=== PATIENT | female | born 1965 | race Caucasian/White ===

== ENCOUNTER 2021-02-10 08:46 | Emergency (ER) | payer OTHER ==
[~2021-02-10] VITALS: Ht 162.6 cm; Wt 70.0 kg
--- NOTE | 2021-02-10 08:54 | NUR ---
PT BIBA. PER EMS PT HAD SZ LIKE ACTIVITY PER PT'S SISTER FOR 15 MINUTES. EMS STATES THAT BS WAS 50 UPON THEIR ARRIVAL, AFTER 150ML OF D10 PT'S BS WAS 125. PT HAS HX OF SEIZURES AND T1DM. PT RESTING IN [place], MONITORING IN PLACE, SISTER AT BEDSIDE, BS CURRENTLY 131, NADN AT THIS TIME. PT CURRENTLY ORIENTED TO SELF, SITUATION, AND TIME. PT IS ON VACATION HERE FROM [place] AND DOES NOT REMEMBER COMING HERE. REPORT GIVEN TO MICHAEL HUGGINS.
--- NOTE | 2021-02-10 09:07 | NUR ---
BEDSIDE REPORT FROM MICHAEL CRAIN. PT AWAKE/ALERT, A&O TO SELF AND SITUATION, CANNOT RECALL PLACE. ARRIVES TO ED WITH FRIEND WHO REPORTS "THIS IS NORMAL IF HER SUGAR IS LOW", HX DM 1 AND SEIZURES. DENIES EATING OR TAKING INSULIN THIS AM. DENIES PAIN/N/V. NO ORAL TRAUMA OR INCONTINENCE NOTED. BS NOW 124. PT EVALUATED BY ERP, OKAY FOR PO FOOD/FLUIDS. PT PROVIDED MILK, JUICE, AND MEAL TRAY. BP /SPO2 MONITORING IN PLACE. VSS. SZ PRECAUTIONS IN PLACE.
[2021-02-10] MEDS ORDERED: PLEASE ENTER ALLERGIES MC SCH (09:30)
[2021-02-10] MEDS ORDERED: SODIUM CHLORIDE 0.9% 1,000ML IVBOLUS ONE (09:30)
[2021-02-10 09:32] LABS: BASOPHILS % (AUTO) 1 % (0-1); EOSINOPHILS % (AUTO) 1 % (1-7); LYMPHOCYTES % (AUTO) 23 % (22-44); MEAN CORPUSCULAR HGB CONC 35.1 g/dL (32.4-35.8); MEAN PLATELET VOLUME 8.3 fL (7.4-10.4); MONOCYTES % (AUTO) 9 % (2-9); NEUTROPHILS % (AUTO) 66 % (42-75); PLATELET COUNT 301 x10^3/uL (130-400); RED BLOOD COUNT 4.43 x10^6/uL (3.82-5.3); RED CELL DISTRIBUTION WIDTH 12.5 % (9.6-15.2)
[2021-02-10 09:35] LABS: MD NO
[2021-02-10 09:46] LABS: ALANINE AMINOTRANSFERASE 29 U/L (12-78); ALBUMIN 3.8 g/dL (3.4-5.0); ANION GAP 4 mmol/L (5-15); CALCIUM 9.1 mg/dL (8.5-10.1); CHLORIDE 107 mmol/L (98-107); CREATININE 0.82 mg/dL (0.55-1.02)
[2021-02-10 09:48] LABS: ALKALINE PHOSPHATASE 105 U/L (45-117); BILIRUBIN,TOTAL 0.6 mg/dL (0.2-1.0); TOTAL PROTEIN 7.4 g/dL (6.4-8.2)
--- NOTE | 2021-02-10 09:56 | NUR ---
PT SITTING UP IN [place]. APPEARS MORE ALERT. CONTINUES TO TAKE ORAL
[2021-02-10 10:16] VITALS: BP 145/70
--- NOTE | 2021-02-10 10:17 | NUR ---
BG 185. PT REPORTS "FEELING MUCH BETTER". VSS.
--- NOTE | 2021-02-10 10:40 | NUR ---
PT AMBUALTED STEADILY TO BATHROOM. UA COLLECTED AND SENT TO LAB.
[2021-02-10 10:50] LABS: MICROSCOPIC AUTO
== END 2021-02-10 11:42 | disposition home or self-care (01) ==
LOC: ED 09:13
DX: E10.649 Type 1 diabetes mellitus with hypoglycemia without coma (principal); R56.9 Unspecified convulsions; R51.9 Headache, unspecified; I10 Essential (primary) hypertension; R41.82 Altered mental status, unspecified
CPT/HCPCS: 36415; 80053; 81001; 82962; 85025; 93005; 96360; 99284; J7030